=== PATIENT | female | born 1980 | race Caucasian/White ===

== ENCOUNTER 2020-08-11 15:06 | Outpatient (REF) | payer OTHER, SELFPAY | END 2020-08-11 15:07 | disposition home or self-care (01) | LOC: HO.LAB 15:06 | PROVIDERS: Visit Provider Internal Medicine | DX: Z20.822 Contact with and (suspected) exposure to COVID-19 (principal) | CPT/HCPCS: 36415; C9803; U0003 ==

== ENCOUNTER 2020-12-01 11:20 | Outpatient (REF) | payer OTHER, SELFPAY ==
[2020-12-01 11:39] LABS: COVID-19 Test Positive (Negative)
== END 2020-12-01 11:21 | disposition home or self-care (01) ==
LOC: HO.LAB 11:20
PROVIDERS: Visit Provider Internal Medicine
DX: Z20.822 Contact with and (suspected) exposure to COVID-19 (principal)
CPT/HCPCS: 36415; 87635; C9803

== ENCOUNTER 2020-12-11 11:02 | Outpatient (REF) | payer OTHER, SELFPAY ==
[2020-12-11 11:24] LABS: COVID-19 Test Negative (Negative); IDNOW Serial# 55D5AD1C
== END 2020-12-11 11:03 | disposition home or self-care (01) ==
LOC: HO.LAB 11:02
PROVIDERS: Visit Provider Internal Medicine
DX: Z20.822 Contact with and (suspected) exposure to COVID-19 (principal)
CPT/HCPCS: 36415; 87635; C9803

== ENCOUNTER 2021-05-22 09:58 | Outpatient (REF) | payer OTHER, SELFPAY | END 2021-05-22 09:59 | disposition home or self-care (01) | LOC: HO.LAB 09:58 | PROVIDERS: Visit Provider Internal Medicine | DX: Z20.822 Contact with and (suspected) exposure to COVID-19 (principal) | CPT/HCPCS: C9803; U0003; U0005 ==

== ENCOUNTER 2021-06-24 20:27 | Emergency (ER) | payer OTHER, SELFPAY ==
--- NOTE | 2021-06-24 | ECG_ITS ---
Test Reason : CHEST PAIN Blood Pressure : / mmHG Vent. Rate : 106 BPM Atrial Rate : 106 BPM P-R Int : 120 ms QRS Dur : 078 ms QT Int : 340 ms P-R-T Axes : 069 027 003 degrees QTc Int : 451 ms Sinus tachycardia Nonspecific T wave abnormality Possible Left atrial enlargement Abnormal ECG No previous ECGs available Referred By: Generic ED Physician Electronically Signed By:TYLER BELLE MD
[2021-06-24 22:04] VITALS: BP 130/89; PULSE 111; RESP 20; TEMP 36.8; O2SAT 98; BMI 31.1
[2021-06-25 00:20] LABS: MANUAL DIFF FLAG NO
[2021-06-25 00:22] LABS: Basophils Percent Auto 0.4 % (0-2); Eosinophils Absolute Auto 0.1 X10*3/uL (0.0-0.4); Eosinophils Percent Auto 0.9 % (0-4); Hematocrit 43.2 % (37.0-47.0); Imm Gran Abs Auto 0.03 X10*3/uL (0.00-0.03); Imm Gran Pct Auto 0.4 % (0.0-0.4); Lymphocytes Absolute Auto 1.5 X10*3/uL (1.2-4.9); Lymphocytes Percent Auto 18.4 % (20-40); Mean Corpuscular HGB Conc 32.4 g/dl (31.0-35.0); Mean Corpuscular Volume 95.6 fL (80.0-98.0); Mean Platelet Volume 8.7 fL (9.4-12.3); Monocytes Absolute Auto 0.5 X10*3/uL (0.1-1.2); Monocytes Percent Auto 5.7 % (2-11); Neutrophils Percent Auto 74.2 % (45-73); Platelet Count 452 X10*3/uL (160-400); Red Blood Count 4.52 X10*6/uL (4.20-5.50)
[2021-06-25 00:32] VITALS: RESP 16
[2021-06-25 00:34] LABS: COVID-19 Test Negative (Negative); IDNOW Serial# 9DD0AD1C
[2021-06-25 00:39] LABS: Alanine Aminotransferase 23 U/L (0-31); Albumin Level 4.4 g/dL (3.5-5.0); Alkaline Phosphatase 65 U/L (39-117); Anion Gap 14 (12-20); Aspartate Amino Transferase 18 U/L (5-31); Bilirubin Total 1.1 mg/dL (0.0-1.0); Blood Urea Nitrogen 11 mg/dL (9-16); Carbon Dioxide 24 mmol/L (22-29); Chloride 104 mmol/L (96-108); Creatinine Clr Calc Pharmacy 95.1; Estimated Glomerular Filt Rate > 60; Glucose Fasting 112 mg/dL (60-99); Lipase 15 U/L (8-78); Potassium 3.7 mmol/L (3.3-5.1); Sodium 138 mmol/L (135-145); Total Protein 7.4 g/dL (6.5-8.0)
[2021-06-25 01:24] LABS: Appearance Urine CLEAR; Color Urine YELLOW; Glucose Urine UA NEG (NEG); Leukocyte Esterase Urine NEG (NEG); Nitrite Urine NEG (NEG); Specific Gravity - Urine >= 1.030 (1.005-1.025); Urine Blood NEG (NEG); Urine Ketones 5 MG/DL (NEG); Urine Protein TRACE MG/DL (NEG-TRACE)
[2021-06-25 01:25] LABS: UACC Culture Trigger NO; UPreg QC Valid YES; Urine Pregnancy NEGATIVE (NEGATIVE)
[2021-06-25] MEDS: ondansetron HCL 4 MG/2 ML VIAL IVPUSH (02:09)
[2021-06-25] MEDS: Ketorolac Tromethamine 15 MG/ML VIAL IVPUSH (02:11)
[2021-06-25] MEDS: 0.9 % Sodium Chloride 1,000 ML 999 ML IV (02:12)
--- NOTE | 2021-06-25 02:16 | ED.NAVMDI ---
HPI - Nausea/Vomiting/Diarrhea General Chief complaint: Nausea/Vomiting/Diarrhea Stated complaint: vomiting diarrhea abd pain Time Seen by Provider: 06/25/21 00:34 Source: patient Mode of arrival: ambulatory History of Present Illness HPI Narrative: 41-year-old female without significant past medical history presents with complaints of onset nausea/vomiting/diarrhea although once at approximately 2:00 a.m. last night and then throughout the day she has continued to have multiple episodes that have prevented her from holding down any liquids. She denies any associated fever, chills, urinary pain/burning/frequency and thinks she may have ?eaten something bad?. She states her abdomen hurts it as it feels like she has done 1000 sit ups. Related Data Home Medications Medication Instructions Recorded Confirmed No Known Home Meds 06/12/21 06/12/21 Allergies Allergy/AdvReac Type Severity Reaction Status Date / Time prochlorperazine Allergy Mild hyperventil Verified 06/24/21 22:04 [From Compazine] lation tramadol Allergy Mild hyperventil Verified 06/24/21 22:04 lation Review of Systems Review of Systems: Pertinent positives and negatives as stated in HPI 10 point review of systems otherwise negative. PMFSH Past Medical History Source: nursing notes reviewed Social History Social History Patient Tobacco Use Status: Never used Tobacco Advance Directives: No Advance Directives Information Provided: No Patient : No Physical Exam Vital Signs: Vital Signs: Last Vital Signs Temp 98.3 F 06/24/21 22:04 Pulse 111 H 06/24/21 22:04 Resp 16 06/25/21 00:32 BP 130/89 06/24/21 22:04 Pulse Ox 98 06/24/21 22:04 Body Mass Index 31.1 VITAL SIGNS: Reviewed. GENERAL: Well developed, well nourished, in no acute distress. HEAD: Normocephalic/atraumatic EYES: PERRLA, EOMI OROPHARYNX: no oral lesions noted, posterior pharynx clear NECK: Supple, no adenopathy LUNGS: Normal breath sounds. No adventitious sounds or accessory muscle use. SpO2<98> CARDIOVASCULAR: Regular rate and rhythm without noted murmurs ABDOMEN: Soft, mild tenderness without rebound non-distended with bowel sounds. NEUROLOGIC: Alert and oriented x 4. Course Course Course Narrative: 41-year-old female with history and clinical presentation suggestive food contamination/gastroenteritis and after review of all investigations patient likely with residual dehydration which will be addressed with IV fluids and she will be given Zofran. Review of all investigations and on reassessment there are no acute findings and patient states feeling much better after IV fluid resuscitation and is tolerating oral intake. She is otherwise discharged home in stable condition. MDM - Nausea/Vomiting/Diarrhea Lab Data Result diagrams: 06/25/21 00:13 06/25/21 00:13 Labs: Lab Results 06/25/21 06/25/21 06/25/21 Range/Units 00:12 00:13 00:13 WBC 8.0 (4.8-10.8) X10*3/uL RBC 4.52 (4.20-5.50) X10*6/uL Hgb 14.0 (12.0-16.0) g/dl Hct 43.2 (37.0-47.0) % MCV 95.6 (80.0-98.0) fL MCH 31.0 (27.0-33.0) pg MCHC 32.4 (31.0-35.0) g/dl RDW 13.0 (11.0-16.0) % Plt Count 452 H (160-400) X10*3/uL MPV 8.7 L (9.4-12.3) fL Immature Gran % (Auto) 0.4 (0.0-0.4) % Neut % (Auto) 74.2 H (45-73) % Lymph % (Auto) 18.4 L (20-40) % [place] % (Auto) 5.7 (2-11) % Eos % (Auto) 0.9 (0-4) % Baso % (Auto) 0.4 (0-2) % Lymph # (Auto) 1.5 (1.2-4.9) X10*3/uL [place] # (Auto) 0.5 (0.1-1.2) X10*3/uL Eos # (Auto) 0.1 (0.0-0.4) X10*3/uL Baso # (Auto) 0.0 (0.0-0.2) X10*3/uL Abs Immat Gran (auto) 0.03 (0.00-0.03) X10*3/uL Absolute Neuts (auto) 6.0 (2.0-8.3) x10*3/uL Absolute Nucleated RBC 0.000 (0.0-0.012) X10*3/uL Nucleated RBC % (auto) 0.0 (0.0-0.2) /100WBC Sodium 138 (135-145) mmol/L Potassium 3.7 (3.3-5.1) mmol/L Chloride 104 (96-108) mmol/L Carbon Dioxide 24 (22-29) mmol/L Anion Gap 14 (12-20) BUN 11 (9-16) mg/dL Creatinine 0.82 (0.5-1.4) mg/dL Estim Creat Clear Calc 95.1 Estimated GFR > 60 Fasting Glucose 112 H (60-99) mg/dL Calcium 9.0 (8.4-10.2) mg/dL Total Bilirubin 1.1 H (0.0-1.0) mg/dL AST 18 (5-31) U/L ALT 23 (0-31) U/L Alkaline Phosphatase 65 (39-117) U/L Total Protein 7.4 (6.5-8.0) g/dL Albumin 4.4 (3.5-5.0) g/dL Lipase 15 (8-78) U/L Urine Color Urine Appearance Urine pH (5.0-8.0) Ur Specific [place] (1.005-1.025) Urine Protein (NEG-TRACE) MG/DL Urine Glucose (UA) (NEG) MG/DL Urine Ketones (NEG) MG/DL Urine Blood (NEG) Urine Nitrite (NEG) Ur Leukocyte Esterase (NEG) Urine Test (NEGATIVE) COVID-19 (SELVIN) Negative (Negative) COVID-19 Clin Com See Note 06/25/21 06/25/21 Range/Units 01:19 01:19 WBC (4.8-10.8) X10*3/uL RBC (4.20-5.50) X10*6/uL Hgb (12.0-16.0) g/dl Hct (37.0-47.0) % MCV (80.0-98.0) fL MCH (27.0-33.0) pg MCHC (31.0-35.0) g/dl RDW (11.0-16.0) % Plt Count (160-400) X10*3/uL MPV (9.4-12.3) fL Immature Gran % (Auto) (0.0-0.4) % Neut % (Auto) (45-73) % Lymph % (Auto) (20-40) % [place] % (Auto) (2-11) % Eos % (Auto) (0-4) % Baso % (Auto) (0-2) % Lymph # (Auto) (1.2-4.9) X10*3/uL [place] # (Auto) (0.1-1.2) X10*3/uL Eos # (Auto) (0.0-0.4) X10*3/uL Baso # (Auto) (0.0-0.2) X10*3/uL Abs Immat Gran (auto) (0.00-0.03) X10*3/uL Absolute Neuts (auto) (2.0-8.3) x10*3/uL Absolute Nucleated RBC (0.0-0.012) X10*3/uL Nucleated RBC % (auto) (0.0-0.2) /100WBC Sodium (135-145) mmol/L Potassium (3.3-5.1) mmol/L Chloride (96-108) mmol/L Carbon Dioxide (22-29) mmol/L Anion Gap (12-20) BUN (9-16) mg/dL Creatinine (0.5-1.4) mg/dL Estim Creat Clear Calc Estimated GFR Fasting Glucose (60-99) mg/dL Calcium (8.4-10.2) mg/dL Total Bilirubin (0.0-1.0) mg/dL AST (5-31) U/L ALT (0-31) U/L Alkaline Phosphatase (39-117) U/L Total Protein (6.5-8.0) g/dL Albumin (3.5-5.0) g/dL Lipase (8-78) U/L Urine Color YELLOW Urine Appearance CLEAR Urine pH 6.0 (5.0-8.0) Ur Specific [place] >= 1.030 H (1.005-1.025) Urine Protein TRACE (NEG-TRACE) MG/DL Urine Glucose (UA) NEG (NEG) MG/DL Urine Ketones 5 (NEG) MG/DL Urine Blood NEG (NEG) Urine Nitrite NEG (NEG) Ur Leukocyte Esterase NEG (NEG) Urine Test NEGATIVE (NEGATIVE) COVID-19 (SELVIN) (Negative) COVID-19 Clin Com Discharge Plan Discharge Clinical Impression: Gastroenteritis, Food poisoning Patient Disposition: Home, Self-Care Instructions: Food Poisoning (ED), Gastroenteritis (ED) Additional Instructions: Continue stay well hydrated, especially with water. Return to the ER for acute worsening of symptoms. Prescriptions: No Action No Known Home Meds RF: 0 Referrals: Loulou Guzman MD [Primary Care Provider] - 2 days
[2021-06-25] MEDS: Acetaminophen 325 MG TABLET 975 MG PO (02:20)
[2021-06-25 03:16] VITALS: BP 137/82; PULSE 86; RESP 16; TEMP 36.7; O2SAT 98
== END 2021-06-25 03:24 | disposition home or self-care (01) ==
PROVIDERS: Emergency Provider Student in an Organized Health Care Education/Training Program; PCP Internal Medicine
DX: K52.9 Noninfective gastroenteritis and colitis, unspecified (principal); R11.2 Nausea with vomiting, unspecified; R07.9 Chest pain, unspecified; Z20.822 Contact with and (suspected) exposure to COVID-19; Z79.899 Other long term (current) drug therapy
CPT/HCPCS: 36415; 80053; 81003; 81025; 83690; 85025; 87635; 93005; 96361; 96374; 96375; 99284; J1885; J2405

== ENCOUNTER 2022-04-21 14:15 | Emergency (ER) | payer OTHER, SELFPAY ==
[2022-04-21 16:37] VITALS: BP 156/84; PULSE 76; RESP 18; TEMP 36.8; O2SAT 99; BMI 31.1
--- NOTE | 2022-04-21 16:42 | ED_ITS ---
HPI - General Adult General Chief complaint: Ear Problems Stated complaint: L&R earache Time Seen by Provider: 04/21/22 16:42 Source: patient Mode of arrival: ambulatory Limitations: no limitations History of Present Illness HPI narrative: Patient is a 41 year old female presenting to the emergency department today with bilateral ear pain. Patient states that yesterday, the pain started in her right ear and has gotten progressively worse and is now in her left ear. Patient denies any dizziness, lightheadedness, abdominal pain, nausea, vomiting, fever, chills, blurry vision, double vision, loss of vision, chest pain, difficulty breathing, shortness of breath, back pain, night sweats, pain with urination, increased urinary frequency, increased urinary urgency, blood in her urine or stool, syncope or a near syncopal episode, recent trauma or falls, bowel incontinence, bladder incontinence, bowel retention, bladder retention, or any other complaints at this time. Onset (ago): day(s) (1) Severity: mild Severity scale (1-10): 3 Quality: aching Pain Consistency: constant Relieving factors: none Exacerbating factors: none Associated symptoms: denies other symptoms Treatments prior to arrival: none Related Data Previous Rx's Medication Instructions Recorded amoxicillin 875 mg tablet 875 mg PO BID 5 days #10 tabs 04/21/22 ciprofloxacin 0.2 %-hydrocortisone 3 drp otic (ears) BID 7 days #10 mL 04/21/22 1 % ear drops,suspension (Cipro HC) Allergies Allergy/AdvReac Type Severity Reaction Status Date / Time prochlorperazine Allergy Mild hyperventil Verified 04/21/22 16:37 [From Compazine] lation tramadol Allergy Mild hyperventil Verified 04/21/22 16:37 lation Review of Systems Constitutional: Constitutional: Reports no additional constitutional complain ts, Denies chills, Denies fever(s) and Denies night sweats Eyes: Eyes: Reports no additional eye complaints, Denies blurry vision, Denies change in vision, Denies diplopia, Denies eye discharge, Denies loss of vision and Denies eye pain ENT: Denies dizziness Comments: bilateral ear pain Cardiovascular: Cardiovascular: Reports no additional cardiovascular complaints, Denies chest pain, Denies lightheadedness, Denies Loss of Consciousness and Denies dyspnea Respiratory: Respiratory: Reports no additional respiratory complaints and Denies dyspnea Gastrointestinal: Gastrointestinal: Reports no additional gastrointestinal complaints, Denies abdominal pain, Denies melena, Denies hematochezia, Denies c hange in bowel habits and Denies change in stool character Genitourinary: Genitourinary: Denies hematuria, Denies urinary frequency, Denies dysuria, Denies urinary incontinence, Denies urinary hesitancy and Denies urinary urgency Musculoskeletal: Musculoskeletal: Reports no additional musculoskeletal complaints, Denies numbness and Denies tingling Neurologic: Denies dizziness, Denies loss of vision, Denies numbness and Denies tingling Psychiatric: Psychiatric: Reports no additional psychiatric complaints Endocrine: Endocrine: Reports no additional endocrine complaints Hematologic/Lymphatic: Hematologic/Lymphatic: Reports no additional hematologic/lymphatic complaints Allergic/Immunologic: Allergic/Immunologic: Reports no additional allergic/immunologic complaints [facility] Past Medical History Attestation statement: The following information was validated with the patient. Source: old records reviewed Social History Social History Patient Tobacco Use Status: Never used Tobacco Physical Exam ED Vital Signs: Vital Signs - 24 hr 04/21/22 16:37 Temperature 98.3 F Pulse Rate 76 Respiratory Rate 18 Blood Pressure 156/84 H Pulse Oximetry 99 Oxygen Delivery Method Room Air BMI result Body Mass Index 31.1 Const General: cooperative, no acute distress, alert and awake Nutritional Appearance: well nourished Orientation/consciousness: patient oriented x3 Limitations: no limitations HENMT Head: Yes normal to inspection and Yes atraumatic Ears: hearing grossly normal bilaterally, Abnormal EAC present edema on the left and TM abnormal erythematous on the right General nose exam: Normal external nose present, no nasal discharge noted and no epistaxis Face and sinus: Yes normal facial exam, No abrasion and No laceration Mouth: Normal oral and palatal mucosa present, no drooling and no muffled voice Eyes General: appearance normal, both eyes and all related structures Periorbital: periorbital findings normal Eyelids: Yes eyelids normal Conjunctivae: conjunctivae normal Pupils: Equal, round and reactive pupils present EOM: EOMs intact bilaterally Neck Neck: Yes normal visual inspection, Yes full ROM and Yes no lymphadenopathy Chest Chest palpation & inspection: normal inspection of the chest Resp Effort & Inspection: normal respiratory effort and able to speak in complete sentences Auscultation: clear to auscultation bilaterally Cardio Rate: regular rate Rhythm: regular rhythm GI Inspection: Yes normal to inspection Neuro General: patient oriented x3 and moves all extremities Cranial nerves: Yes Equal, round and reactive pupils present Cognition (Neuro): normal cognition Motor exam (neuro): 5/5 motor strength present throughout Sensory Exam: Normal double simultaneous stimulation for sensation Coordination: [id number] test normal Extrem General: Yes normal to inspection, Yes full ROM and Yes capillary refill normal Psych Appearance: grossly normal Mental Status: mental status grossly normal Affect: normal affect Attitude: cooperative Thought process: Normal thought process present Thought content: Normal thought content present Insight: Good insight present (Psych) Medical Decision Making MDM Narrative Medical decision making narrative: Patient is a 41 year old female presenting to the emergency department today with bilateral ear pain. Patient's physical exam showed an erythematous right TM and a swollen EAC of the left ear. I explained my physical exam findings to the patient. I answered all questions asked by the patient. I stressed the importance of the patient taking her medication as prescribed. I stressed the importance of the patient following up with her primary care provider. I stressed the importance of the patient returning to the emergency department immediately if her symptoms were to worsen or if she were to develop any dizziness, shortness of breath, difficulty breathing, chest pain, blurry vision, loss of vision, nausea, vomiting, abdominal pain, fever, chills, back pain, or any other complaints. Patient verbalized agreement and understanding with this treatment plan and discharge. Medical Records Medical records reviewed: Yes I reviewed the patient's medical records. Discharge Plan Discharge Clinical Impression: Otitis externa, Otitis media Patient Disposition: Home, Self-Care Instructions: How to Use Ear Drops (ED), Ear Infection (ED) Additional Instructions: Follow up with your primary care provider. Return to the emergency department immediately if your symptoms worsen or if you develop any dizziness, shortness of breath, difficulty breathing, chest pain, blurry vision, loss of vision, nausea, vomiting, abdominal pain, fever, chills, back pain, or any other complaints. Prescriptions: New amoxicillin 875 mg tablet 875 mg PO BID 5 Days Qty: 10 0RF Cipro HC 0.2-1 % drops,suspension 3 drp otic (ears) BID 7 Days Qty: 10 0RF Referrals: [facility] [place]] (Call to establish and follow up with a primary care provider. If you already have a primary care provider, please follow up with them. ) [facility] [place]] (Call to establish and follow up with a primary care provider. If you already have a primary care provider, please follow up with them. ) [facility] [place] [facility]] (Call to establish and follow up with a primary care provider. If you already have a primary care provider, please follow up with them. ) Print Language: Macedonian
== END 2022-04-21 17:19 | disposition home or self-care (01) ==
LOC: HO.ED 16:52
PROVIDERS: Emergency Provider Internal Medicine; PCP Internal Medicine
DX: H60.93 Unspecified otitis externa, bilateral (principal); H92.03 Otalgia, bilateral; Z79.899 Other long term (current) drug therapy
CPT/HCPCS: 99282; 99283

== ENCOUNTER 2022-05-14 12:12 | Emergency (ER) | payer OTHER, SELFPAY ==
--- NOTE | 2022-05-14 | ECG_ITS ---
Test Reason : CHEST TIGHTNESS Blood Pressure : / mmHG Vent. Rate : 085 BPM Atrial Rate : 085 BPM P-R Int : 134 ms QRS Dur : 076 ms QT Int : 378 ms P-R-T Axes : 064 024 015 degrees QTc Int : 449 ms Normal sinus rhythm Possible Left atrial enlargement Otherwise normal ECG When compared with ECG of 24-JUN-2021 22:54, No significant change was found Referred By: Generic ED Physician Electronically Signed By:TYLER BELLE MD
--- NOTE | ~2022-05-14 | CT_ITS ---
EXAMINATION: CT ANGIOGRAM OF THE CHEST WITH AND WITHOUT CONTRAST (CT PULMONARY ANGIOGRAM FOR PE) CLINICAL INFORMATION: Reason for Exam Chest pain, shortness of breath, dyspnea exertion, COMPARISON: None TECHNIQUE: Prior to contrast administration, noncontrast localization images were obtained. Subsequently, multidetector volumetric imaging was performed from the thoracic inlet to below the diaphragms following the administration of 75 mL Omnipaque 350 intravenous contrast. No contrast reaction reported Sagittal, coronal, and MIP oblique sagittal reformatted images were obtained on the CT workstation, uploaded to PACS, and reviewed. This CT examination was performed using dose optimization techniques as appropriate, variously including the following: *Automated exposure control *Adjustment of mA and/or kV according to patient size (this includes techniques or standardized protocols for targeted exams where dose is matched to indication/reason for exam; i.e. extremities or head) *Use of iterative reconstruction technique Total exam dose-length product 314 mGy-cm FINDINGS: QUALITY OF STUDY/CONTRAST BOLUS: Satisfactory. PULMONARY ARTERIES: No central or segmental pulmonary emboli. THORACIC AORTA: No aneurysm or dissection. LUNG: Right upper lobe subpleural 3 mm nodule (3:147). Right upper lobe subpleural 3 mm nodule (8:166). Right lower lobe 6 mm nodule (8:219). Right middle lobe 3 mm subpleural nodule (8:253). Right lower lobe subpleural 3 mm nodule (8:265). Mild background diffuse mosaic attenuation may reflect pneumonitis, small vessels or small airways disease. No consolidation. PLEURA: No pleural effusion or pneumothorax. MEDIASTINUM: Normal heart size. No pericardial effusion. No hilar or mediastinal lymphadenopathy. No evidence of septal bowing or right heart strain. CHEST WALL/AXILLA: No axillary or internal mammary lymphadenopathy. OSSEOUS STRUCTURES: No acute or suspicious osseous abnormality. UPPER ABDOMEN: Unremarkable. No reflux of contrast into the hepatic veins to suggest elevated right heart pressures. CT/CT angio chest PE protocol IMPRESSION: No acute pulmonary embolus. Mild background mosaic attenuation of the pulmonary parenchyma may reflect pneumonitis, small vessel or small airways disease. No focal dilatation. Right lung pulmonary nodules measuring up to 6 mm. According to the UPDATED 2017 Fleischner Society recommendations, the advised followup imaging for multiple solid nodules, the largest measuring 6 mm or greater, is: LOW RISK PATIENT: CT at 3-6 months, then consider CT at 18-24 months. HIGH RISK PATIENT: CT at 3-6 months, then at 18-24 months. VTE: negative
[2022-05-14 12:31] VITALS: BP 162/92; PULSE 97; RESP 18; TEMP 36.4; O2SAT 99; BMI 31.6
[2022-05-14 12:47] LABS: MANUAL DIFF FLAG NO
[2022-05-14 12:51] LABS: Basophils Absolute Auto 0.1 X10*3/uL (0.0-0.2); Basophils Percent Auto 1.1 % (0-2); Eosinophils Absolute Auto 0.3 X10*3/uL (0.0-0.4); Eosinophils Percent Auto 4.6 % (0-4); Hematocrit 38.5 % (37.0-47.0); Hemoglobin 12.6 g/dl (12.0-16.0); Imm Gran Abs Auto 0.02 X10*3/uL (0.00-0.03); Imm Gran Pct Auto 0.3 % (0.0-0.4); Lymphocytes Absolute Auto 2.3 X10*3/uL (1.2-4.9); Lymphocytes Percent Auto 36.2 % (20-40); Mean Corpuscular HGB Conc 32.7 g/dl (31.0-35.0); Mean Corpuscular Hemoglobin 30.4 pg (27.0-33.0); Mean Corpuscular Volume 92.8 fL (80.0-98.0); Monocytes Absolute Auto 0.8 X10*3/uL (0.1-1.2); Monocytes Percent Auto 11.9 % (2-11); Neutrophils Absolute Auto 2.9 x10*3/uL (2.0-8.3); Neutrophils Percent Auto 45.9 % (45-73); Platelet Count 277 X10*3/uL (160-400); Red Blood Count 4.15 X10*6/uL (4.20-5.50); Red Cell Distribution Width 12.9 % (11.0-16.0); White Blood Count 6.4 X10*3/uL (4.8-10.8)
[2022-05-14 13:12] LABS: Troponin-I High Sensitivity < 3.5 ng/L (<3.5-17.0)
--- NOTE | 2022-05-14 14:10 | ED.CHESTPAIN ---
HPI - Chest Pain General Chief Complaint: Chest Pain Stated Complaint: Chest tightness/SOB Time Seen by Provider: 05/14/22 14:09 Source: patient Mode of arrival: ambulatory Limitations: no limitations History of Present Illness HPI narrative: 41-year-old female who presents emergency department for evaluation of chest pain, shortness of breath and nausea. The patient states she has had symptoms for approximately 3 weeks. She complains of chest pressure/having and she points to her sternum when asked to localize the pain. She states that initially this pain was intermittent but over the past week the pain is been constant. The pain is worse with breathing worse with movement. She states that the pain is 7/10 at its worst. She states that she also has been feeling short of breath at rest and is having dyspnea on exertion. She states that over the past week the dyspnea on exertion is gotten worse and she can only walk approximately 2-3 blocks and walk up 10-15 stairs prior to getting winded and fatigued. She states that she has had constant nausea with no vomiting. She has had occasional diarrhea. She states that over the past 2 days she had a subjective fever and occasional chills. She is not on any hormone supplements and she has not gone on any long trips. She states that she was recently seen in the emergency department on 04/21/2022 for bilateral otitis media and otitis externa. She was treated with amoxicillin and Cipro HC drops. She states she did call her doctor and her doctor advised her to go to the emergency department for evaluation. Her family history is negative for early coronary artery disease in her primary relatives. MD complaint: chest heaviness Onset (ago): week(s) (3) Timing of current episode: constant Prior episodes: No Onset: during rest and during exertion Pain location: substernal Pain radiation: none Severity: moderate Pain scale (0-10): 7 Quality: heaviness Relieving factors: nothing Exacerbating factors: exertion, inspiration and movement Context: recent illness (Bilateral otitis media and otitis externa) Associated symptoms: nausea Treatment prior to arrival: none Risk Factors Coronary artery disease risk factors: none Thoracic aortic dissection risk factors: none Related Data On Oral Contraceptives: No Previous Rx's Medication Instructions Recorded amoxicillin 875 mg tablet 875 mg PO BID 5 days #10 tabs 04/21/22 ciprofloxacin 0.2 %-hydrocortisone 3 drp otic (ears) BID 7 days #10 mL 04/21/22 1 % ear drops,suspension (Cipro HC) doxycycline hyclate 100 mg tablet 100 mg PO Q12H 14 days #28 tabs 05/14/22 prednisone 20 mg tablet 60 mg PO DAILY 7 days #21 tabs 05/14/22 Allergies Allergy/AdvReac Type Severity Reaction Status Date / Time prochlorperazine Allergy Mild hyperventil Verified 04/21/22 16:37 [From Compazine] lation tramadol Allergy Mild hyperventil Verified 04/21/22 16:37 lation Review of Systems Review of Systems: Yes all other systems are reviewed and are negative [facility] Past Medical History [facility] Narrative: Past medical history: Asthma as a child which resolved. Past surgical history: Bilateral tubal ligation 2014. 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 She denies tobacco use but is a former smoker and stop smoking 4 years prior. She occasionally drinks alcohol. She states she does smoke marijuana at night in order to help her fall asleep. Social History Social History Patient Tobacco Use Status: Former Tobacco user Use of substances other than those prescribed or required for medical reasons: Yes Substance Use Type: Marijuana Substance Use Frequency: Weekly Substance Use Frequency Other:: sleep Any prior treatment program specific to substance use: No Advance Directives: No Patient : No Physical Exam Vital Signs: Vital Signs: Last Vital Signs Temp 98.3 F 05/14/22 15:43 Pulse 82 05/14/22 15:43 Resp 16 05/14/22 15:43 BP 134/94 H 05/14/22 15:43 Pulse Ox 98 05/14/22 15:43 O2 Del Method 05/14/22 15:43 BMI result Body Mass Index 31.6 Const: General: cooperative and no acute distress Orientation/consciousness: oriented to person and oriented to place Limitations: no limitations HEENT: Head: Yes normal to inspection, Yes normocephalic and Yes atraumatic Ears: external ears normal General nose exam: Normal external nose present Face and sinus: Yes normal facial exam Mouth: Normal oral and palatal mucosa present Throat: Yes posterior oropharynx normal Eyes: General: appearance normal, both eyes and all related structures Pupils: Equal, round and reactive pupils present Neck: Neck: Yes normal visual inspection, Yes no lymphadenopathy, Yes trachea midline and Yes supple Chest: Chest palpation & inspection: normal inspection of the chest and tenderness sternum (Moderate) Resp: Effort & Inspection: normal respiratory effort and able to speak in complete sentences Auscultation: clear to auscultation bilaterally Cardio: Rate: regular rate Rhythm: regular rhythm Heart sounds: S1 normal heart sound present, S2 normal heart sound present and no murmurs GI: Inspection: Yes normal to inspection Palpation (GI): Soft to palpation, nontender and no guarding Auscultation: normal bowel sounds : General: Yes no CVA tenderness Back/Spine/Pelvis: Back: no CVA tenderness Skin: General skin exam: no rashes or lesions noted Neuro: General: oriented to person and oriented to place Cranial nerves: Yes CN's II-XII intact bilaterally and Yes Equal, round and reactive pupils present Cognition (Neuro): normal cognition Motor exam (neuro): 5/5 motor strength present throughout Extrem: General: Yes normal to inspection Psych: Appearance: grossly normal Speech and movement: Normal speech and movement present Affect: normal affect Attitude: cooperative Thought process: Normal thought process present Thought content: Normal thought content present Course Course Course Narrative: 41-year-old female who presents emergency department for evaluation of chest pain, shortness of breath, dyspnea on exertion and nausea x3 weeks, initially her symptoms were intermittent but over the past week that become constant. The patient has also had increasing dyspnea on exertion which occurs after she walks approximately 2-3 blocks are walks up approximately 15 steps. The patient has no significant past medical history and no significant family history for early coronary artery disease. The patient vital signs did reveal an elevated blood pressure of 162/92. Her exam did reveal sternal tenderness otherwise was unremarkable. 1505: Laboratory evaluation: CBC was normal, troponin was less than 3.5. Twelve EKG was unremarkable. Given her progressive shortness of breath/dyspnea on exertion and her sternal chest pain which is worse with breathing I did order a CT pulmonary angiogram to rule out PE. I will repeat her troponin at 15:30 hours Patient was ordered to get Toradol 15 mg IV, Zofran 4 mg IV and normal saline x1 L. 1739: The patient's repeat troponin was below detectable limits which is reassuring. Patient's CT pulmonary angiogram PE protocol revealed no PE however the patient does have a mosaic pattern with multiple small pulmonary emboli. This was suspect the patient has an atypical bacterial pneumonia. I did order blood cultures x2. Patient had no relief of her pain with the oral therefore I ordered morphine 4 mg IV. The patient will be discharged and treated with doxycycline 100 mg q.12 hours times 14 days, prednisone 60 mg once a day times 7 days. She was advised to take Tylenol for her pain. She will need to follow-up with 1 of our pulmonologists for re-evaluation. MDM - Chest Pain Medical Records Data Attestation: I reviewed the patient's medical records. Lab Data Attestation: I reviewed the patient's lab results. Result diagrams: 05/14/22 12:40 05/14/22 15:40 Labs: Lab Results 05/14/22 05/14/22 05/14/22 Range/Units 12:40 12:40 15:40 WBC 6.4 (4.8-10.8) X10*3/uL RBC 4.15 L (4.20-5.50) X10*6/uL Hgb 12.6 (12.0-16.0) g/dl Hct 38.5 (37.0-47.0) % MCV 92.8 (80.0-98.0) fL MCH 30.4 (27.0-33.0) pg MCHC 32.7 (31.0-35.0) g/dl RDW 12.9 (11.0-16.0) % Plt Count 277 D (160-400) X10*3/uL MPV 9.0 L (9.4-12.3) fL Immature Gran % (Auto) 0.3 (0.0-0.4) % Neut % (Auto) 45.9 (45-73) % Lymph % (Auto) 36.2 (20-40) % Bacon % (Auto) 11.9 H (2-11) % Eos % (Auto) 4.6 H (0-4) % Baso % (Auto) 1.1 (0-2) % Lymph # (Auto) 2.3 (1.2-4.9) X10*3/uL Bacon # (Auto) 0.8 (0.1-1.2) X10*3/uL Eos # (Auto) 0.3 (0.0-0.4) X10*3/uL Baso # (Auto) 0.1 (0.0-0.2) X10*3/uL Abs Immat Gran (auto) 0.02 (0.00-0.03) X10*3/uL Absolute Neuts (auto) 2.9 (2.0-8.3) x10*3/uL Absolute Nucleated RBC 0.000 (0.0-0.012) X10*3/uL Nucleated RBC % (auto) 0.0 (0.0-0.2) /100WBC Sodium 138 (135-145) mmol/L Potassium 4.0 (3.3-5.1) mmol/L Chloride 104 (96-108) mmol/L Carbon Dioxide 23 (22-29) mmol/L Anion Gap 15 (12-20) BUN 10 (9-16) mg/dL Creatinine 0.68 (0.5-1.4) mg/dL Estim Creat Clear Calc 115.6 Estimated GFR > 60 Random Glucose 91 (60-115) mg/dL Calcium 8.8 (8.4-10.2) mg/dL Troponin I High Sens < 3.5 (<3.5-17.0) ng/L COVID-19 (SELVIN) (Negative) COVID-19 Clin Com 05/14/22 05/14/22 Range/Units 15:40 15:40 WBC (4.8-10.8) X10*3/uL RBC (4.20-5.50) X10*6/uL Hgb (12.0-16.0) g/dl Hct (37.0-47.0) % MCV (80.0-98.0) fL MCH (27.0-33.0) pg MCHC (31.0-35.0) g/dl RDW (11.0-16.0) % Plt Count (160-400) X10*3/uL MPV (9.4-12.3) fL Immature Gran % (Auto) (0.0-0.4) % Neut % (Auto) (45-73) % Lymph % (Auto) (20-40) % Bacon % (Auto) (2-11) % Eos % (Auto) (0-4) % Baso % (Auto) (0-2) % Lymph # (Auto) (1.2-4.9) X10*3/uL Bacon # (Auto) (0.1-1.2) X10*3/uL Eos # (Auto) (0.0-0.4) X10*3/uL Baso # (Auto) (0.0-0.2) X10*3/uL Abs Immat Gran (auto) (0.00-0.03) X10*3/uL Absolute Neuts (auto) (2.0-8.3) x10*3/uL Absolute Nucleated RBC (0.0-0.012) X10*3/uL Nucleated RBC % (auto) (0.0-0.2) /100WBC Sodium (135-145) mmol/L Potassium (3.3-5.1) mmol/L Chloride (96-108) mmol/L Carbon Dioxide (22-29) mmol/L Anion Gap (12-20) BUN (9-16) mg/dL Creatinine (0.5-1.4) mg/dL Estim Creat Clear Calc Estimated GFR Random Glucose (60-115) mg/dL Calcium (8.4-10.2) mg/dL Troponin I High Sens < 3.5 (<3.5-17.0) ng/L COVID-19 (SELVIN) Negative (Negative) COVID-19 Clin Com See Note Imaging Data CT pulmonary angiogram PE protocol: Radiologist's impression: [address] [id number] Scan ReportSigned Patient: Ole Ambriz#: [id number]: 1980Acct:[id number]/Sex: 41 / FADM Date: 05/14/22Loc: HO.EDAttending Dr: Ordering Physician: Daniel Bowling MD Date of Service: 05/14/22 Procedure(s): CT angio chest PE protocol Accession Number(s): [id number] cc: Daniel Bowling MD~ EXAMINATION: CT ANGIOGRAM OF THE CHEST WITH AND WITHOUT CONTRAST (CT PULMONARY ANGIOGRAM FOR PE) CLINICAL INFORMATION: Reason for Exam Chest pain, shortness of breath, dyspnea exertion, COMPARISON: None TECHNIQUE: Prior to contrast administration, noncontrast localization images were obtained. Subsequently, multidetector volumetric imaging was performed from the thoracic inlet to below the diaphragms following the administration of 75 mL Omnipaque 350 intravenous contrast. No contrast reaction reported Sagittal, coronal, and MIP oblique sagittal reformatted images were obtained on the CT workstation, uploaded to PACS, and reviewed. This CT examination was performed using dose optimization techniques as appropriate, variously including the following: *Automated exposure control *Adjustment of mA and/or kV according to patient size (this includes techniques or standardized protocols for targeted exams where dose is matched to indication/reason for exam; i.e. extremities or head) *Use of iterative reconstruction technique Total exam dose-length product 314 mGy-cm FINDINGS: QUALITY OF STUDY/CONTRAST BOLUS: Satisfactory. PULMONARY ARTERIES: No central or segmental pulmonary emboli. THORACIC AORTA: No aneurysm or dissection. LUNG: Right upper lobe subpleural 3 mm nodule (3:147). Right upper lobe subpleural 3 mm nodule (8:166). Right lower lobe 6 mm nodule (8:219). Right middle lobe 3 mm subpleural nodule (8:253). Right lower lobe subpleural 3 mm nodule (8:265). Mild background diffuse mosaic attenuation may reflect pneumonitis, small vessels or small airways disease. No consolidation. PLEURA: No pleural effusion or pneumothorax. MEDIASTINUM: Normal heart size. No pericardial effusion. No hilar or mediastinal lymphadenopathy. No evidence of septal bowing or right heart strain. CHEST WALL/AXILLA: No axillary or internal mammary lymphadenopathy. OSSEOUS STRUCTURES: No acute or suspicious osseous abnormality. UPPER ABDOMEN: Unremarkable. No reflux of contrast into the hepatic veins to suggest elevated right heart pressures. CT/CT angio chest PE protocol IMPRESSION: No acute pulmonary embolus. Mild background mosaic attenuation of the pulmonary parenchyma may reflect pneumonitis, small vessel or small airways disease. No focal dilatation. Right lung pulmonary nodules measuring up to 6 mm. According to the UPDATED 2017 Fleischner Society recommendations, the advised followup imaging for multiple solid nodules, the largest measuring 6 mm or greater, is: LOW RISK PATIENT: CT at 3-6 months, then consider CT at 18-24 months. HIGH RISK PATIENT: CT at 3-6 months, then at 18-24 months. VTE: negative Dictated By:Camilla Ramirez MDSigned By:<Electronically signed by Camilla Ramirez MD in [place]>05/14/221718 DD/ TD/TT: Wound Care Technician: ECG Data ECG #1: Attestation: I personally reviewed and interpreted this ECG as follows: Interpretation: 1236: Normal sinus rhythm with a rate of 85, normal TN interval, QRS duration QTC interval, no ST segment elevation, no ST segment depression, inverted T-wave in lead 3, no PACs, no PVCs. When compared to EKG dated 06/16 there is no significant change. Discharge Plan Discharge Clinical Impression: Atypical pneumonia, Pulmonary nodules, Acute dyspnea Chest pain Qualifiers: Chest pain type: unspecified Qualified Code(s): R07.9 - Chest pain, unspecified Patient Disposition: Home, Self-Care Instructions: Pneumonia (ED) Additional Instructions: Your blood work was unremarkable Your high sensitivity troponin I was below detectable limits and your repeat 3 hour troponin was also below detectable limits. The CT scan pulmonary angiogram PE protocol revealed no blood clots in your lungs which is reassuring You do have an unusual mosaic pattern noted in your lungs which can be caused by an atypical bacterial pneumonia. Therefore I am treating you with doxycycline 100 mg twice a day for 14 days I am also treat you with prednisone 20 mg pills, 3 pills once a day for 7days. While you are taking prednisone, do not take any NSAIDs (Motrin, Advil, ibuprofen, Aleve, naproxen). Take Tylenol (acetaminophen) 500 mg pills, 2 pills every 4 to 6 hours as needed for pain or fever. You do have multiple pulmonary nodule that are small both lungs. This could possibly be related to the pneumonia however in someone who is a former smoker we have to worry about cancer. I want you to follow-up with our ceramic capacitor processor, Dr. Khan further evaluation of your chest pain, shortness of breath an abnormal CT scan Follow-up with your doctor in 2 days. Please return to the emergency department if your symptoms get worse or if you develop any symptoms that are concerning to you. This is the CT scan reading from the radiology. LUNG: Right upper lobe subpleural 3 mm nodule (3:147). Right upper lobe subpleural 3 mm nodule (8:166). Right lower lobe 6 mm nodule (8:219). Right middle lobe 3 mm subpleural nodule (8:253). Right lower lobe subpleural 3 mm nodule (8:265). Mild background diffuse mosaic attenuation may reflect pneumonitis, small vessels or small airways disease. No consolidation. IMPRESSION: No acute pulmonary embolus. Mild background mosaic attenuation of the pulmonary parenchyma may reflect pneumonitis, small vessel or small airways disease. No focal dilatation. Right lung pulmonary nodules measuring up to 6 mm. According to the UPDATED 2017 Fleischner Society recommendations, the advised followup imaging for multiple solid nodules, the largest measuring 6 mm or greater, is: LOW RISK PATIENT: CT at 3-6 months, then consider CT at 18-24 months. HIGH RISK PATIENT: CT at 3-6 months, then at 18-24 months. VTE: negative Dictated By:Camilla Ramirez MDSigned By:<Electronically signed by Camilla Ramirez MD in [place]>05/14/22 [id number] Prescriptions: New prednisone 20 mg tablet 60 mg PO DAILY 7 Days Qty: 21 0RF doxycycline hyclate 100 mg tablet 100 mg PO Q12H 14 Days Qty: 28 0RF No Action amoxicillin 875 mg tablet 875 mg PO BID 5 Days Qty: 10 0RF Cipro HC 0.2-1 % drops,suspension 3 drp otic (ears) BID 7 Days Qty: 10 0RF Referrals: Nik Khan MD [Physician] - 2 weeks (Dyspnea x3 weeks, chest pain, CT angiogram PE protocol mosaic pattern, multiple small pulmonary nodules on the right. I am treating her for atypical pneumonia with doxycycline 100 mg q.12 times 14 days, prednisone 60 mg x 7 days.)
[2022-05-14 15:43] VITALS: BP 134/94; PULSE 82; RESP 16; TEMP 36.8; O2SAT 98
[2022-05-14 16:08] LABS: Anion Gap 15 (12-20); Blood Urea Nitrogen 10 mg/dL (9-16); Calcium 8.8 mg/dL (8.4-10.2); Carbon Dioxide 23 mmol/L (22-29); Chloride 104 mmol/L (96-108); Creatinine Clr Calc Pharmacy 115.6; Estimated Glomerular Filt Rate > 60; Glucose Random 91 mg/dL (60-115); Sodium 138 mmol/L (135-145)
[2022-05-14 16:13] LABS: Troponin-I High Sensitivity < 3.5 ng/L (<3.5-17.0)
[2022-05-14] MEDS: 0.9 % Sodium Chloride 1,000 ML 999 ML IV (16:15)
[2022-05-14 16:19] LABS: IDNOW Serial# 9DB6401D
[2022-05-14] MEDS: Ketorolac Tromethamine 15 MG/ML VIAL IVPUSH (16:19)
[2022-05-14 16:20] LABS: COVID-19 Test Negative (Negative)
[2022-05-14] MEDS: ondansetron HCL 4 MG/2 ML VIAL IVPUSH (16:20)
--- NOTE | 2022-05-14 16:22 | PC.NURSE ---
patient a&ox3, iv inserted, registered nurse cardiac applied, nsr 80s, ivf started, pt medicated per order 02/03 mid sternal chest pain, call guajardo within reach, will continue to monitor
[2022-05-14] MEDS: iohexoL 350 MG/ML 100 ML INFUS..BTL IV (16:56)
--- NOTE | 2022-05-14 17:14 | PC.NURSE ---
IVF are running, pt seems anxious, nurse has spoken with provider to order some anxiety meds.
[2022-05-14] MEDS: predniSONE 20 MG TABLET 60 MG PO (18:13)
[2022-05-14] MEDS: Morphine Sulfate 4 MG/ML CARTRIDGE IVPUSH (18:13)
[2022-05-14 18:29] VITALS: BP 146/91; PULSE 79; RESP 16; TEMP 36.7; O2SAT 98
[2022-05-14 18:44] LABS: C Reactive Protein 1.53 mg/dL (< or = 0.50)
[2022-05-14 19:09] LABS: Erythrocyte Sedimentation Rate 4 MM/HR (0-20)
== END 2022-05-14 18:40 | disposition home or self-care (01) ==
PROVIDERS: Emergency Provider Emergency Medicine Emergency Medical Services; PCP Internal Medicine
DX: J18.9 Pneumonia, unspecified organism (principal); R07.89 Other chest pain; R06.02 Shortness of breath; R91.8 Other nonspecific abnormal finding of lung field; Z20.822 Contact with and (suspected) exposure to COVID-19; Z79.899 Other long term (current) drug therapy
CPT/HCPCS: 36415; 71275; 80048; 84484; 85025; 85652; 86140; 87040; 87635; 93005; 96361; 96374; 96375; 99284; 99285; J1885; J2270; J2405; Q9967

== ENCOUNTER 2022-05-24 11:02 | Emergency (ER) | payer OTHER, SELFPAY ==
--- NOTE | ~2022-05-24 | XR_ITS ---
EXAMINATION: XR CHEST CLINICAL INFORMATION: Chest pain COMPARISON: None TECHNIQUE: AP portable view of the chest was obtained. FINDINGS: There are linear regions of disease seen within the left lower lobe likely related to atelectasis or scarring. No confluent parenchymal disease is identified. No pneumothorax or pleural effusion. Heart normal size. No evidence of pulmonary edema. XR/XR chest 1V IMPRESSION: Probable linear atelectasis or scar within the lower left lung.
--- NOTE | 2022-05-24 11:05 | ECG_ITS ---
Test Reason : cp Blood Pressure : / mmHG Vent. Rate : 094 BPM Atrial Rate : 094 BPM P-R Int : 118 ms QRS Dur : 068 ms QT Int : 364 ms P-R-T Axes : 058 024 036 degrees QTc Int : 455 ms Normal sinus rhythm with sinus arrhythmia Normal ECG When compared with ECG of 14-MAY-2022 12:36, No significant change was found Referred By: Generic ED Physician Electronically Signed By:TYLER BELLE MD
[2022-05-24 11:06] VITALS: BP 127/78; PULSE 89; RESP 19; TEMP 35.5; O2SAT 98; BMI 31.6
--- NOTE | 2022-05-24 11:50 | ED.CHESTPAIN ---
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 Reports side effects of palpitations/anxiety, diarrhea, n/v feels the medications made her sick. Completed prednisone. Did not complete the doxycycline. She still has dyspnea unsure if it started with cat exposure at work. Not on OCPs, no travel. Still has reproduceable sore CWP MD complaint: chest pain Onset (ago): week(s) (few) Timing of current episode: constant Prior episodes: Yes Onset: during rest and during exertion Pain location: substernal Pain radiation: none Severity: moderate Quality: aching Relieving factors: nothing Exacerbating factors: exertion and palpation Context: recent illness Associated symptoms: nausea, vomiting and dyspnea Treatment prior to arrival: other (prednisone and doxy) Related Data Previous Rx's Medication Instructions Recorded amoxicillin 875 mg tablet 875 mg PO BID 5 days #10 tabs 04/21/22 ciprofloxacin 0.2 %-hydrocortisone 3 drp otic (ears) BID 7 days #10 mL 04/21/22 1 % ear drops,suspension (Cipro HC) doxycycline hyclate 100 mg tablet 100 mg PO Q12H 14 days #28 tabs 05/14/22 prednisone 20 mg tablet 60 mg PO DAILY 7 days #21 tabs 05/14/22 fluticasone furoate 50 1 inh inhalation DAILY 30 days #30 05/24/22 mcg/actuation blister powder for ea inhalation montelukast 10 mg tablet 10 mg PO BEDTIME #30 tabs 05/24/22 (Singulair) Allergies Allergy/AdvReac Type Severity Reaction Status Date / Time prochlorperazine Allergy Mild hyperventil Verified 04/21/22 16:37 [From Compazine] lation tramadol Allergy Mild hyperventil Verified 04/21/22 16:37 lation Review of Systems Review of Systems: Constitutional : unsure if she has had Weight loss, possible subjective Fever, pos Chills ENT/Mouth : No sore throat, No Rhinorrhea Eyes: No Eye Pain, No Swelling Cardiovascular : pos Chest Pain, pos SOB, no Dyspnea on Exertion, No Orthopnea, No Edema, No Palpitations Respiratory : No Cough, No Sputum Gastrointestinal : pos Nausea, pos Vomiting, No Diarrhea, No abdominal Pain, No Hematochezia, No Melena Genitourinary : No Dysuria, No Urinary Frequency Musculoskeletal : No joint pain, No Myalgias, No Joint Swelling Skin : No Skin Lesions, No rash Neuro : No Weakness, No Numbness, No Dizziness, No Headache Psych : No Anxiety/Panic, No Depression Heme/Lymph: No Bruising, No Lymphadenopathy Endocrine : No Polyuria, No Polydipsia All other systems reviewed and are negative [facility] Past Medical History Attestation statement: The following information was validated with the patient. Medical History (Updated 05/24/22 @ 13:42 by Kaye Lambert DO) Asthma Pneumonitis Social History Social History Patient Tobacco Use Status: Former Tobacco user Substance Use Type: Marijuana Advance Directives: No Physical Exam Vital Signs: Vital Signs: Last Vital Signs Temp 96 F L 05/24/22 11:06 Pulse 89 05/24/22 11:06 Resp 19 05/24/22 11:06 BP 127/78 05/24/22 11:06 Pulse Ox 98 05/24/22 11:06 O2 Del Method 05/24/22 11:06 BMI result Body Mass Index 31.6 Appearance: Alert. Oriented X3. No acute distress. Eyes: Pupils equal, round and reactive to light. ENT: Pharynx normal. Neck: Normal inspection. Neck supple. CVS: Normal heart rate and rhythm. Pulses normal. Chest: ttp along sternum reproduces pain Respiratory: No respiratory distress. Breath sounds normal. Abdomen: Soft and nontender. Skin: Skin warm and dry. Normal skin color. Normal skin turgor. Extremities: No lower extremity edema. No calf ttp Neuro: Oriented X 3. No motor deficit. No sensory deficit. Course Course Course Narrative: plt mildly elevated otherwise negative workup will repeat plts in 1 week with PCP start on fluticasone and singulair Procedures Procedure Narrative Procedure Narrative: bedside ECHO - substernal, apical, parasternal - no pericardial effusion seen, no GWMA MDM - Chest Pain MDM Narrative Medical decision making narrative: 41 yo female no sig PMH other than asthma reports persistent dyspnea, chest pain n/v didn't tolerate doxy or prednisone well. At this time doubt ACS PE given chronicity/risk factors and recent negative workup along with negative CTA. I cannot find risk for pneumonitis denies travel or exposures, buys THC from dispensary. Will obtain basic labs, bedside ECHO, CRP, hydrate and reassess. Lab Data Result diagrams: 05/24/22 12:12 05/24/22 12:12 Labs: Lab Results 05/24/22 05/24/22 05/24/22 Range/Units 12:12 12:12 12:12 WBC 7.8 (4.8-10.8) X10*3/uL RBC 4.30 (4.20-5.50) X10*6/uL Hgb 13.2 (12.0-16.0) g/dl Hct 40.6 (37.0-47.0) % MCV 94.4 (80.0-98.0) fL MCH 30.7 (27.0-33.0) pg MCHC 32.5 (31.0-35.0) g/dl RDW 12.8 (11.0-16.0) % Plt Count 517 H D (160-400) X10*3/uL MPV 8.6 L (9.4-12.3) fL Immature Gran % (Auto) 1.0 H (0.0-0.4) % Neut % (Auto) 44.6 L (45-73) % Lymph % (Auto) 43.4 H (20-40) % [place] % (Auto) 7.4 (2-11) % Eos % (Auto) 2.6 (0-4) % Baso % (Auto) 1.0 (0-2) % Lymph # (Auto) 3.4 (1.2-4.9) X10*3/uL [place] # (Auto) 0.6 (0.1-1.2) X10*3/uL Eos # (Auto) 0.2 (0.0-0.4) X10*3/uL Baso # (Auto) 0.1 (0.0-0.2) X10*3/uL Abs Immat Gran (auto) 0.08 H (0.00-0.03) X10*3/uL Absolute Neuts (auto) 3.5 (2.0-8.3) x10*3/uL Absolute Nucleated RBC 0.000 (0.0-0.012) X10*3/uL Nucleated RBC % (auto) 0.0 (0.0-0.2) /100WBC Sodium 139 (135-145) mmol/L Potassium 4.4 (3.3-5.1) mmol/L Chloride 103 (96-108) mmol/L Carbon Dioxide 24 (22-29) mmol/L Anion Gap 16 (12-20) BUN 11 (9-16) mg/dL Creatinine 0.73 (0.5-1.4) mg/dL Estim Creat Clear Calc 107.7 Estimated GFR > 60 Random Glucose 98 (60-115) mg/dL Calcium 9.6 D (8.4-10.2) mg/dL Troponin I High Sens < 3.5 (<3.5-17.0) ng/L C-Reactive Protein 0.14 (< or = 0.50) mg/dL COVID-19 (SELVIN) (Negative) COVID-19 Clin Com 05/24/22 Range/Units 12:12 WBC (4.8-10.8) X10*3/uL RBC (4.20-5.50) X10*6/uL Hgb (12.0-16.0) g/dl Hct (37.0-47.0) % MCV (80.0-98.0) fL MCH (27.0-33.0) pg MCHC (31.0-35.0) g/dl RDW (11.0-16.0) % Plt Count (160-400) X10*3/uL MPV (9.4-12.3) fL Immature Gran % (Auto) (0.0-0.4) % Neut % (Auto) (45-73) % Lymph % (Auto) (20-40) % [place] % (Auto) (2-11) % Eos % (Auto) (0-4) % Baso % (Auto) (0-2) % Lymph # (Auto) (1.2-4.9) X10*3/uL [place] # (Auto) (0.1-1.2) X10*3/uL Eos # (Auto) (0.0-0.4) X10*3/uL Baso # (Auto) (0.0-0.2) X10*3/uL Abs Immat Gran (auto) (0.00-0.03) X10*3/uL Absolute Neuts (auto) (2.0-8.3) x10*3/uL Absolute Nucleated RBC (0.0-0.012) X10*3/uL Nucleated RBC % (auto) (0.0-0.2) /100WBC Sodium (135-145) mmol/L Potassium (3.3-5.1) mmol/L Chloride (96-108) mmol/L Carbon Dioxide (22-29) mmol/L Anion Gap (12-20) BUN (9-16) mg/dL Creatinine (0.5-1.4) mg/dL Estim Creat Clear Calc Estimated GFR Random Glucose (60-115) mg/dL Calcium (8.4-10.2) mg/dL Troponin I High Sens (<3.5-17.0) ng/L C-Reactive Protein (< or = 0.50) mg/dL COVID-19 (SELVIN) Negative (Negative) COVID-19 Clin Com See Note ECG Data ECG #1: Attestation: I personally reviewed and interpreted this ECG as follows: ECG interpretation date: 05/24/22 ECG interpretation time: 11:51 Interpretation: Rate: 94 Rhythm: NSR [place]: normal Normal P waves. Normal ALANNA. Normal QRS complex. ST T wave : nonspecific, no TERRANCE qTC: normal prior studies: no acute ischemia The study has been interpreted contemporaneously by me. . Discharge Plan Discharge Clinical Impression: Atypical chest pain Patient Disposition: Home, Self-Care Instructions: Chest Pain (ED) Additional Instructions: return to ED for any worsening symptoms or concerns negative heart marker, EKG unchanged, CXR: No acute findings plts mildly elevated - repeat in 1 week likely due to recent illness Prescriptions: New fluticasone furoate 50 mcg/actuation blister with device 1 inh inhalation DAILY 30 Days Qty: 30 0RF Rx Instructions: rinse mouth after each use montelukast [Singulair] 10 mg tablet 10 mg PO BEDTIME Qty: 30 0RF No Action amoxicillin 875 mg tablet 875 mg PO BID 5 Days Qty: 10 0RF Cipro HC 0.2-1 % drops,suspension 3 drp otic (ears) BID 7 Days Qty: 10 0RF prednisone 20 mg tablet 60 mg PO DAILY 7 Days Qty: 21 0RF doxycycline hyclate 100 mg tablet 100 mg PO Q12H 14 Days Qty: 28 0RF Stand Alone Forms: Work/School Release
[2022-05-24 12:17] LABS: Basophils Absolute Auto 0.1 X10*3/uL (0.0-0.2); Eosinophils Absolute Auto 0.2 X10*3/uL (0.0-0.4); Eosinophils Percent Auto 2.6 % (0-4); Hematocrit 40.6 % (37.0-47.0); Hemoglobin 13.2 g/dl (12.0-16.0); Imm Gran Abs Auto 0.08 X10*3/uL (0.00-0.03); Lymphocytes Absolute Auto 3.4 X10*3/uL (1.2-4.9); Lymphocytes Percent Auto 43.4 % (20-40); Mean Corpuscular HGB Conc 32.5 g/dl (31.0-35.0); Mean Corpuscular Hemoglobin 30.7 pg (27.0-33.0); Mean Corpuscular Volume 94.4 fL (80.0-98.0); Mean Platelet Volume 8.6 fL (9.4-12.3); Monocytes Absolute Auto 0.6 X10*3/uL (0.1-1.2); Monocytes Percent Auto 7.4 % (2-11); Neutrophils Absolute Auto 3.5 x10*3/uL (2.0-8.3); Neutrophils Percent Auto 44.6 % (45-73); Platelet Count 517 X10*3/uL (160-400); Red Cell Distribution Width 12.8 % (11.0-16.0); White Blood Count 7.8 X10*3/uL (4.8-10.8)
[2022-05-24 12:18] LABS: MANUAL DIFF FLAG NO
[2022-05-24 12:31] LABS: Anion Gap 16 (12-20); Blood Urea Nitrogen 11 mg/dL (9-16); C Reactive Protein 0.14 mg/dL (< or = 0.50); Calcium 9.6 mg/dL (8.4-10.2); Carbon Dioxide 24 mmol/L (22-29); Chloride 103 mmol/L (96-108); Creatinine Clr Calc Pharmacy 107.7; Estimated Glomerular Filt Rate > 60; Glucose Random 98 mg/dL (60-115); Potassium 4.4 mmol/L (3.3-5.1); Sodium 139 mmol/L (135-145)
[2022-05-24 12:35] LABS: COVID-19 Test Negative (Negative); IDNOW Serial# 16C4AD1C
[2022-05-24 12:37] LABS: Troponin-I High Sensitivity < 3.5 ng/L (<3.5-17.0)
[2022-05-24] MEDS: 0.9 % Sodium Chloride 1,000 ML 999 ML IV (13:12)
[2022-05-24] MEDS: ondansetron HCL 4 MG/2 ML VIAL IVPUSH (13:13)
== END 2022-05-24 13:54 | disposition home or self-care (01) ==
PROVIDERS: Emergency Provider Emergency Medicine
DX: R07.89 Other chest pain (principal); Z79.899 Other long term (current) drug therapy; Z87.891 Personal history of nicotine dependence; Z20.822 Contact with and (suspected) exposure to COVID-19
CPT/HCPCS: 36415; 71045; 80048; 84484; 85025; 86140; 87635; 93005; 96374; 99283; 99284; J2405

== ENCOUNTER 2022-05-30 11:54 | Outpatient (REF) | payer OTHER, SELFPAY ==
[2022-05-30 12:08] LABS: MANUAL DIFF FLAG NO
[2022-05-30 12:44] LABS: Basophils Percent Auto 0.5 % (0-2); Eosinophils Absolute Auto 0.2 X10*3/uL (0.0-0.4); Eosinophils Percent Auto 3.1 % (0-4); Hematocrit 36.1 % (37.0-47.0); Hemoglobin 11.6 g/dl (12.0-16.0); Imm Gran Abs Auto 0.04 X10*3/uL (0.00-0.03); Imm Gran Pct Auto 0.5 % (0.0-0.4); Lymphocytes Absolute Auto 2.3 X10*3/uL (1.2-4.9); Mean Corpuscular HGB Conc 32.1 g/dl (31.0-35.0); Mean Corpuscular Hemoglobin 30.9 pg (27.0-33.0); Mean Corpuscular Volume 96.3 fL (80.0-98.0); Mean Platelet Volume 9.1 fL (9.4-12.3); Monocytes Absolute Auto 0.6 X10*3/uL (0.1-1.2); Monocytes Percent Auto 8.1 % (2-11); Neutrophils Absolute Auto 4.5 x10*3/uL (2.0-8.3); Neutrophils Percent Auto 57.8 % (45-73); Platelet Count 375 X10*3/uL (160-400); Red Blood Count 3.75 X10*6/uL (4.20-5.50); Red Cell Distribution Width 12.7 % (11.0-16.0); White Blood Count 7.7 X10*3/uL (4.8-10.8)
== END 2022-05-30 11:55 | disposition home or self-care (01) ==
LOC: HO.LAB 11:54
PROVIDERS: PCP Internal Medicine; Visit Provider Internal Medicine Pulmonary Disease
DX: Z91.09 Other allergy status, other than to drugs and biological substances (principal); R91.8 Other nonspecific abnormal finding of lung field; J45.909 Unspecified asthma, uncomplicated
CPT/HCPCS: 36415; 82785; 85025; 86003; 99202

== ENCOUNTER 2022-06-27 08:50 | Outpatient (REF) | payer OTHER, SELFPAY ==
--- NOTE | 2022-06-27 17:01 | PFT_ITS ---
FLOWS: FEV1 80% of predicted at 2.44 L. FVC 76% of predicted at 2.83 L. FEV1 to FVC ratio of 0.86. No bronchodilator response. LUNG VOLUMES: Total lung capacity 80% of predicted at 4.19 L. Residual volume 83% of predicted at 1.44 L. Slow vital capacity 78% of predicted at 2.75 L. Expiratory reserve volume 49% of predicted at 0.58 L. Diffusion capacity is normal. IMPRESSION: No obstructive or restrictive ventilatory defect. No bronchodilator response. MD KARL Pritchard/MODL / [id number]
== END 2022-06-27 08:51 | disposition home or self-care (01) ==
LOC: HO.RESP 08:50
PROVIDERS: PCP Internal Medicine; Visit Provider Internal Medicine Pulmonary Disease
DX: J45.909 Unspecified asthma, uncomplicated (principal)
CPT/HCPCS: 94060; 94727; 94729

== ENCOUNTER → 2022-07-09 11:12 | Outpatient (BNVA) | payer OTHER, SELFPAY | PROVIDERS: PCP Internal Medicine; Visit Provider Internal Medicine Pulmonary Disease | DX: J45.909 Unspecified asthma, uncomplicated (principal); R91.8 Other nonspecific abnormal finding of lung field; Z91.09 Other allergy status, other than to drugs and biological substances; Z79.899 Other long term (current) drug therapy | CPT/HCPCS: 99212 ==

== ENCOUNTER 2023-02-19 11:10 | Outpatient (REF) | payer OTHER, SELFPAY ==
--- NOTE | ~2023-02-19 | CT_ITS ---
EXAMINATION: CT CHEST WITHOUT CONTRAST CLINICAL INFORMATION: Abnormal lung findings. COMPARISON: Chest x-ray 05/24/2022. CTA chest 05/14/2022. TECHNIQUE: Multidetector volumetric CT imaging of the chest was done. Axial MIP volume rendering provided. Sagittal and coronal reformatted images were obtained. This CT examination was performed using dose optimization techniques as appropriate, variously including the following: *Automated exposure control. *Adjustment of mA and/or kV according to patient size (this includes techniques or standardized protocols for targeted exams where dose is matched to indication/reason for exam; i.e. extremities or head). *Use of iterative reconstruction technique. 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 LUNGS: There are bilateral lung nodules. The largest nodule right lower lobe measures 6 mm on axial image 274/6 and is stable. Several 3 mm nodules right upper, mid and lower lobe are stable. Minimal atelectatic changes are seen in the lingula. No new nodules seen. MEDIASTINUM: The thyroid lobes are symmetric and normal. The central trachea and the bronchi are widely patent. The heart size and the great vessels are normal caliber. No pericardial effusion seen. No abnormal size mediastinal or hilar lymphadenopathy. CORONARY ARTERY CALCIFICATION: None visualized on this study. PLEURA: There is no pleural effusion. No pleural mass or thickening. AXILLA: No lymphadenopathy. UPPER ABDOMEN: There is a 7 mm hypodensity right hepatic lobe segment 6, stable. The rest of the visualized liver, spleen and pancreas are unremarkable. There is a 5 mm nodule in the upper pole right kidney. OSSEOUS STRUCTURES: No aggressive lytic or sclerotic process seen. There is mild ventral spondylosis in the dorsal spine. CT/CT chest wo IV con IMPRESSION: 1. Bilateral pulmonary nodules are stable. Largest 6 mm nodule in the right lower lobe is stable. No new nodules seen. 2. No abnormal mediastinal or axillary lymphadenopathy. 3. A 5 mm radiopaque calculi upper pole right kidney. It was not well visualized on previous study. Fleischner guidelines were followed.
== END 2023-02-19 11:11 | disposition home or self-care (01) ==
LOC: HO.CT 11:10
PROVIDERS: PCP Internal Medicine; Visit Provider Internal Medicine Pulmonary Disease
DX: R91.8 Other nonspecific abnormal finding of lung field (principal)
CPT/HCPCS: 71250

== ENCOUNTER 2023-02-20 14:21 | Outpatient (AMB) | payer OTHER, SELFPAY ==
[2023-02-20 14:22] VITALS: BP 136/78; PULSE 85; O2SAT 98; BMI 32.5
--- NOTE | 2023-02-20 14:22 | MHC.OFFVIS ---
Intake Vital Signs 02/20/23 14:22 Height 5 ft 5 in Weight 195 lb 1.745 oz BMI 32.5 BP 136/78 Blood Pressure Location Lt brachial Position Sitting Pulse 85 Pulse Source Pulse Oximeter Pulse Oximetry (%) 98 Oxygen Delivery Method Room Air Intake Visit Reasons: CT follow up Intake Note: Pt reports everything is going well, got a chest CT 02/19/23. 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 Patient states that her asthma has been really well controlled and she rarely requires to use her inhalers. Patient did complete of follow-up CT chest, however in official resultant available flows this visit. I have reviewed at and her biggest right lower lobe pulmonary nodule does not look significantly different from the prior imaging. [facility] Medical History (Updated 05/30/22 @ 11:47 by Nik Khan MD) Asthma Pneumonitis Social History Patient Tobacco Use Status: Former Tobacco user Substance Use Type: Marijuana Review of Systems Const Denies daytime sleepiness, Denies excessive sweating, Denies fatigue, Denies fever(s), Denies lethargy, Denies malaise, Denies night sweats, Denies snoring and Denies weight loss Eyes Denies blurry vision and Denies itchy eyes ENT Denies nasal congestion, Denies post nasal drip, Denies sinus pain, Denies sinus pressure and Denies other ( Thrush) Card Denies chest pain, Denies pedal edema, Denies dyspnea, Denies orthopnea and Denies paroxysmal nocturnal dyspnea Resp Denies cough, Denies hemoptysis, Denies excessive phlegm production, Denies dyspnea, Denies snoring and Denies wheezing GI Denies abdominal pain and Denies heartburn Musc Denies myalgias, Denies arthralgias and Denies joint swelling Skin/Breast Denies rash Neuro Denies memory loss and Denies seizure-like activity Psych Denies abnormal sleep pattern, Denies anxiety and Denies memory loss Endo Denies excessive sweating, Denies fatigue and Denies heat intolerance Rasheed/Lymph Denies easy bruising Aller/Immun Denies itchy eyes, Denies seasonal rhinorrhea and Denies wheezing Physical Exam Vital Signs: Last Vital Signs Pulse 85 02/20/23 14:22 BP 136/78 02/20/23 14:22 Pulse Ox 98 02/20/23 14:22 Oxygen Delivery Method Room Air 02/20/23 14:22 BMI result Body Mass Index 32.5 Const General: no acute distress and alert Nutritional Appearance: not obese Orientation/consciousness: Other orientation findings ( oriented) HEENT Head: Yes atraumatic Eyes General: appearance normal, both eyes and all related structures Sclerae: sclerae normal EOM: EOMs intact bilaterally Neck Neck: Yes supple Lymphatic: no lymphadenopathy noted Resp Effort & Inspection: normal respiratory effort and no use of accessory muscles Auscultation: clear to auscultation bilaterally Cardio Rate: regular rate Rhythm: regular rhythm Heart sounds: no gallops, no murmurs and no rubs Skin General skin exam: other ( warm) Extrem General: No clubbing, No cyanosis and No edema Assessment & Plan Assessment & Plan (1) Asthma: Code(s): J45.909 - Unspecified asthma, uncomplicated Plan: Well controlled on as needed albuterol MDI. Continue current regimen. Does not require Symbicort at this time. (2) Pulmonary nodules: Code(s): R91.8 - Other nonspecific abnormal finding of lung field Plan: Official read is not available on the follow-up CT chest obtained day prior to this visit. On my review no appreciable change in 6 mm right lower lobe pulmonary nodule. Will repeat CT chest in 12 months. Orders: Orders CT chest wo IV con 02/14/24 R91.8 - Other nonspecific abnormal finding of lung field Coding Level of Care Code Est Pt Level 4 (10495) Diagnoses Asthma J45.909 Pulmonary nodules R91.8
== END 2023-02-20 14:34 | disposition home or self-care (01) ==
PROVIDERS: PCP Internal Medicine; Visit Provider Internal Medicine Pulmonary Disease
DX: J45.909 Unspecified asthma, uncomplicated (principal); R91.8 Other nonspecific abnormal finding of lung field
CPT/HCPCS: 99214

== ENCOUNTER → 2023-02-20 14:21 | Outpatient (BNVA) | payer OTHER, SELFPAY | PROVIDERS: PCP Internal Medicine; Visit Provider Internal Medicine Pulmonary Disease | DX: J45.909 Unspecified asthma, uncomplicated (principal); R91.8 Other nonspecific abnormal finding of lung field | CPT/HCPCS: 99212 ==